=== PATIENT | male | born 1960 | race Caucasian/White ===

== ENCOUNTER 2019-06-28 17:01 | Inpatient (IN) | payer OTHER ==
[~2019-06-28] VITALS: Ht 185.4 cm; Wt 91.3 kg
[~2019-06-28 17:01] MED LIST: ELAVIL
[2019-06-28] MEDS ORDERED: SODIUM CHLORIDE 0.9% 1,000 ML IV ONE (17:30)
[2019-06-28] MEDS ORDERED: cefTRIAXone 1GM/50ML D5W 50 ML IV ONE (18:00)
[2019-06-28 19:22] LABS: Basophils # (auto) 0.1 uL; Eosinophils # (auto) 0.2 uL; Nucleated Red Blood Cells % 0.1 %
[2019-06-28 19:23] LABS: Basophils % (auto) 0.7 % (0.0-2.0); Eosinophils % (auto) 1.5 % (0.0-7.0); Hematocrit 31.5 % (41.0-53.0); Hemoglobin 10.6 g/dL (13.5-17.5); Lymphocytes # (auto) 2.4 uL; Mean Corpuscular Hemoglobin 30.1 pg (28.0-32.0); Mean Corpuscular Hgb Conc. 33.6 g/dL (32.0-36.0); Mean Corpuscular Volume 89.5 fL (80.0-100.0); Monocytes # (auto) 1.4 uL; Monocytes % (auto) 9.3 % (0.0-12.0); Neutrophils # (auto) 10.9 uL; Neutrophils % (auto) 72.5 % (37.0-80.0); Red Blood Cells 3.52 10^6/uL (4.5-5.90); Red Cell Distribution Width 14.3 % (11.8-14.3); White Blood Cell 15.1 10^3/uL (4.4-10.8)
[2019-06-28 19:29] LABS: Albumin 2.8 g/dL (3.4-5.0); Calcium 8.7 mg/dL (8.5-10.1)
[2019-06-28] MEDS ORDERED: LACTULOSE 20Gm/30ML SOLN PO PRN (19:30)
[2019-06-28] MEDS ORDERED: ACETAMINOPHEN 500 MG TAB PO PRN (19:30)
[2019-06-28] MEDS ORDERED: traMADol HCL 50 MG TAB PO PRN (19:30)
[2019-06-28] MEDS ORDERED: PROMETHAZINE HCL 25 MG/ML 1ML IV PRN (19:30)
[2019-06-28] MEDS ORDERED: TEMAZEPAM 15 MG CAP PO PRN (19:30)
[2019-06-28] MEDS ORDERED: ALBUTEROL SULF 2.5 MG/0.5ML(0.5%) NEB SOLN NEB PRN (19:30)
[2019-06-28 19:31] LABS: BUN/Creatinine Ratio 13.6
[2019-06-28 19:33] LABS: Bilirubin, Total 0.3 mg/dL (0.2-1.0); Total Protein 7.5 g/dL (6.4-8.2)
[2019-06-28] MEDS ORDERED: FLUTICASONE PROP NASAL SPR 0.05 % (50MCG) 16GM EACHNOSTRI ONE (20:00)
[2019-06-28] MEDS ORDERED: IOHEXOL 350 MG/ML 100ML IJ ONE ×2 (20:08→21:09)
[2019-06-28] MEDS: SODIUM CHLORIDE 0.9% 1,000 ML IV SCH (20:08)
[2019-06-28 21:19] LABS: Platelet Count (auto) 791 10^3/uL (140-450)
[2019-06-28] MEDS: CLINDAMYCIN 600MG IV 50 ML IV SCH (22:07)
[2019-06-28 22:18] VITALS: BP 129/71
[2019-06-28 22:41] VITALS: BP 123/77
--- NOTE | 2019-06-28 22:45 | NUR ---
PATIENT ARRIVED FROM ER AT 2218 VIA WHEELCHAIR PATIENT IN BED, BED IS LOCKED IN LOWEST POSITION, BED RAILS UP X2 AND HEAD OF BED IS UP >30 DEGREES. BEDSIDE TABLE WITHIN REACH, CALL LIGHT WITHIN REACH. ORIENTED PATIENT TO ROOM AND RESTROOM. CALL LIGHT PROVIDED FOR PATIENT; PATIENT RETURNED DEMONSTRATION ON PROPER USE OF CALL LIGHT CONTROL AND BED. AND DAUGHTER AT BEDSIDE, [employer] NOTED. KAREN TAYLOR ASSISTED WITH PATIENT HEALTH HISTORY. DISCUSSED POC WITH PATIENT AND INSTRUCTED PATIENT TO CALL PRN; PATIENT VERBALIZED UNDERSTANDING. WILL CONTINUE OT MONITOR Q1H AND PRN.
--- NOTE | 2019-06-28 23:05 | NUR ---
MED RECONCILIATION PER KAREN WRIGHTZ- CLAUDIA [phone], SHE WILL BRING IN LIST OF CURRENT MEDICATION IN THE AM 06/29/19.
[2019-06-29] VITALS (7 sets, daily range): BP systolic 104–119; BP diastolic 48–73
[2019-06-29] MEDS: IPRATROPIUM BROM 0.5 MG/2.5ML INH SOL NEB SCH ×5 (01:01→23:15)
[2019-06-29] MEDS: ALBUTEROL SULF 2.5 MG/0.5ML(0.5%) NEB SOLN NEB SCH ×5 (01:02→23:14)
[2019-06-29] MEDS: CLINDAMYCIN 600MG IV 50 ML IV SCH ×3 (05:29→22:06)
--- NOTE | 2019-06-29 06:52 | NUR ---
CLOSING NOTE PATIENT IS RESTING IN BED EYES CLOSED. BREATHING IS EVEN AND UNLABORED. NO S/SX OF DISTRESS, SOB OR PAIN. RESPIRATORY CULTURE ORDER FOR LAB IS PENDING; WILL ENDORSE PATIENT CARE TO DAY SHIFT NURSE.
[2019-06-29 07:29] LABS: Eosinophils # (auto) 0.1 uL; Monocytes # (auto) 1.6 uL
[2019-06-29 07:31] LABS: Basophils # (auto) 0 uL; Basophils % (auto) 0.2 % (0.0-2.0); Eosinophils % (auto) 0.8 % (0.0-7.0); Hematocrit 28.9 % (41.0-53.0); Hemoglobin 10.2 g/dL (13.5-17.5); Lymphocytes % (auto) 11.4 % (10.0-50.0); Mean Corpuscular Hemoglobin 31.2 pg (28.0-32.0); Mean Corpuscular Hgb Conc. 35.2 g/dL (32.0-36.0); Mean Corpuscular Volume 88.5 fL (80.0-100.0); Monocytes % (auto) 9.1 % (0.0-12.0); Neutrophils # (auto) 13.8 uL; Neutrophils % (auto) 78.5 % (37.0-80.0); Red Blood Cells 3.27 10^6/uL (4.5-5.90); Red Cell Distribution Width 14.5 % (11.8-14.3); White Blood Cell 17.6 10^3/uL (4.4-10.8)
[2019-06-29 07:41] LABS: Platelet Count (auto) 770 10^3/uL (140-450)
[2019-06-29 07:42] LABS: Albumin 2.3 g/dL (3.4-5.0); Calcium 8.3 mg/dL (8.5-10.1)
[2019-06-29 07:45] LABS: BUN/Creatinine Ratio 10.5; Bilirubin, Total 0.5 mg/dL (0.2-1.0); Total Protein 6.8 g/dL (6.4-8.2)
--- NOTE | 2019-06-29 08:00 | NUR ---
Opening Shift Note Patient orientated to RN, Joi and room. Assumed care of patient, awake and alert. No S/S of distress/SOB or pain. Instructed on POC and to call for assist PRN, will continue to monitor for changes. Bed is in low position and call light within reach.
[2019-06-29] MEDS: SODIUM CHLORIDE 0.9% 1,000 ML IV SCH ×2 (08:47→22:07)
[2019-06-29] MEDS: FLUTICASONE PROP NASAL SPR 0.05 % (50MCG) 16GM EACHNOSTRI SCH (10:00)
[2019-06-29] MEDS: ENOXAPARIN SOD 40 MG/0.4 ML SYRINGE SC SCH (10:08)
[2019-06-29] MEDS: PANTOPRAZOLE 40 MG TAB PO SCH (10:09)
[2019-06-29] MEDS: LEVOFLOXACIN 500MG 100 ML IV SCH (10:10)
--- NOTE | 2019-06-29 11:35 | NUR ---
AT BEDSIDE DR Elin LEIVA AT BEDSIDE AT THIS TIME. NEW ORDERS RECEIVED. CONTINUING TO MONITOR.
--- NOTE | 2019-06-29 19:36 | NUR ---
END OF SHIFT NOTE PATIENT RESTING COMFORTABLY IN BED. PATIENT SHOWS NO S/S OF DISTRESS OR SOB NOTED. BED IN LOWEST LOCKED POSITION, CALL LIGHT WITHIN REACH. CARE ENDORSED TO NOC RN.
[2019-06-29] MEDS ORDERED: FENO1TAB42 PO (19:40)
[2019-06-29] MEDS: FENOFIBRATE 145MG TAB PO SCH (22:00)
[2019-06-29] MEDS: AMITRIPTYLINE HCL 25 MG TAB PO SCH (22:06)
[2019-06-30] MEDS: CLINDAMYCIN 600MG IV 50 ML IV SCH ×3 (05:32→22:21)
[2019-06-30 05:46] VITALS: BP 109/65
[2019-06-30 06:10] LABS: Hemoglobin 9.6 g/dL (13.5-17.5)
[2019-06-30 06:13] LABS: Basophils # (auto) 0.1 uL; Basophils % (auto) 0.4 % (0.0-2.0); Eosinophils # (auto) 0.2 uL; Eosinophils % (auto) 1.3 % (0.0-7.0); Hematocrit 28.4 % (41.0-53.0); Lymphocytes # (auto) 1.8 uL; Lymphocytes % (auto) 14.2 % (10.0-50.0); Mean Corpuscular Hemoglobin 30.2 pg (28.0-32.0); Mean Corpuscular Hgb Conc. 33.7 g/dL (32.0-36.0); Mean Corpuscular Volume 89.6 fL (80.0-100.0); Monocytes # (auto) 1.1 uL; Monocytes % (auto) 8.7 % (0.0-12.0); Neutrophils # (auto) 9.5 uL; Neutrophils % (auto) 75.4 % (37.0-80.0); Red Blood Cells 3.17 10^6/uL (4.5-5.90); Red Cell Distribution Width 14.4 % (11.8-14.3); White Blood Cell 12.7 10^3/uL (4.4-10.8)
[2019-06-30 06:18] LABS: Potassium 3.7 mmol/L (3.5-5.1)
[2019-06-30] MEDS: ALBUTEROL SULF 2.5 MG/0.5ML(0.5%) NEB SOLN NEB SCH ×3 (06:23→18:47)
[2019-06-30] MEDS: IPRATROPIUM BROM 0.5 MG/2.5ML INH SOL NEB SCH ×3 (06:23→18:46)
[2019-06-30 06:25] LABS: Albumin 2.2 g/dL (3.4-5.0); BUN/Creatinine Ratio 11.5; Bilirubin, Total 0.5 mg/dL (0.2-1.0); Calcium 8.3 mg/dL (8.5-10.1); Total Protein 6.6 g/dL (6.4-8.2)
--- NOTE | 2019-06-30 07:35 | NUR ---
OPENING SHIFT NOTE ASSUMED CARE OF PATIENT. PATIENT AWAKE AND ALERT SITTING UP IN BED. NO S/S OF DISTRESS OR SOB NOTED. BED IN LOWEST LOCKED POSITION, CALL LIGHT WITHIN REACH. REVIEWED POC WITH PATIENT AND INSTRUCTED TO CALL FOR ASSIST NEEDED. WILL CONTINUE TO MONITOR.
[2019-06-30 07:51] LABS: Platelet Count (auto) 721 10^3/uL (140-450)
[2019-06-30 08:43] VITALS: BP 102/59
--- NOTE | 2019-06-30 09:40 | NUR ---
AT BEDSIDE DR Yesi LEIVA AT BEDSIDE AT THIS TIME.
[2019-06-30] MEDS: FLUTICASONE PROP NASAL SPR 0.05 % (50MCG) 16GM EACHNOSTRI SCH (10:00)
[2019-06-30] MEDS: PANTOPRAZOLE 40 MG TAB PO SCH (10:35)
[2019-06-30] MEDS: ENOXAPARIN SOD 40 MG/0.4 ML SYRINGE SC SCH (10:35)
[2019-06-30] MEDS: LEVOFLOXACIN 500MG 100 ML IV SCH (10:35)
[2019-06-30] MEDS: SODIUM CHLORIDE 0.9% 1,000 ML IV SCH (10:36)
[2019-06-30 11:54] VITALS: BP 101/57
[2019-06-30 17:00] VITALS: BP 121/75
--- NOTE | 2019-06-30 18:52 | NUR ---
END OF SHIFT NOTE PATIENT AWAKE AND ALERT SITTING UP IN BED. SPOUSE AT BEDSIDE AT THIS TIME. NO S/S OF DISTRESS OR SOB NOTED. BED IN LOWEST LOCKED POSITION, CALL LIGHT WITHIN REACH. WILL ENDORSE CARE TO NOC RN.
[2019-06-30 20:00] VITALS: BP 130/71
[2019-06-30] MEDS: AMITRIPTYLINE HCL 25 MG TAB PO SCH (22:21)
[2019-06-30] MEDS: FENOFIBRATE 145MG TAB PO SCH (22:21)
[2019-06-30 23:44] VITALS: BP 130/71
--- NOTE | 2019-07-01 | NUR ---
Respiratory note: PT REFUSED MED NEB TX AT THIS TIME. STATED HE WANTED TO HOLD OFF UNTIL THE MORNING SO THAT HE CAN CATCH UP ON SLEEP. NO SIGNS OF ANY RESPIRATORY DISTRESS NOTED. ADVISED PT TO CALL IF HE CHANGES HIS MIND.
[2019-07-01] MEDS: SODIUM CHLORIDE 0.9% 1,000 ML IV SCH ×2 (04:10→14:20)
[2019-07-01 05:12] VITALS: BP 64/75
[2019-07-01] MEDS: ALBUTEROL SULF 2.5 MG/0.5ML(0.5%) NEB SOLN NEB SCH ×4 (05:43→19:15)
[2019-07-01] MEDS: IPRATROPIUM BROM 0.5 MG/2.5ML INH SOL NEB SCH ×4 (05:43→19:15)
[2019-07-01] MEDS: CLINDAMYCIN 600MG IV 50 ML IV SCH ×3 (06:12→22:02)
[2019-07-01 06:35] LABS: Basophils # (auto) 0 uL; Basophils % (auto) 0.5 % (0.0-2.0); Eosinophils # (auto) 0.3 uL; Eosinophils % (auto) 2.8 % (0.0-7.0); Hematocrit 29.6 % (41.0-53.0); Lymphocytes # (auto) 1.8 uL; Lymphocytes % (auto) 17.7 % (10.0-50.0); Mean Corpuscular Hgb Conc. 33.7 g/dL (32.0-36.0); Mean Corpuscular Volume 88.9 fL (80.0-100.0); Monocytes # (auto) 0.7 uL; Neutrophils # (auto) 7.4 uL; Platelet Count (auto) 717 10^3/uL (140-450); Red Blood Cells 3.33 10^6/uL (4.5-5.90); Red Cell Distribution Width 14.6 % (11.8-14.3); White Blood Cell 10.3 10^3/uL (4.4-10.8)
[2019-07-01 06:58] LABS: Albumin 2.3 g/dL (3.4-5.0); Calcium 8.6 mg/dL (8.5-10.1); Potassium 4.2 mmol/L (3.5-5.1)
[2019-07-01 07:01] LABS: BUN/Creatinine Ratio 10.2; Bilirubin, Total 0.4 mg/dL (0.2-1.0); Total Protein 6.8 g/dL (6.4-8.2)
--- NOTE | 2019-07-01 08:00 | NUR ---
Received pt resting in bed, call light within reach, pt denies any pain at this time, will continue to monitor pt.
[2019-07-01 08:23] VITALS: BP 93/59
[2019-07-01] MEDS: PANTOPRAZOLE 40 MG TAB PO SCH (09:57)
[2019-07-01] MEDS: LEVOFLOXACIN 500MG 100 ML IV SCH (09:57)
[2019-07-01] MEDS: FLUTICASONE PROP NASAL SPR 0.05 % (50MCG) 16GM EACHNOSTRI SCH (09:57)
[2019-07-01] MEDS: ENOXAPARIN SOD 40 MG/0.4 ML SYRINGE SC SCH (09:58)
--- NOTE | 2019-07-01 11:35 | NUR ---
Dr. Hernandez at bed side to see pt, doctor discussed the plan of care with pt.
[2019-07-01 12:34] VITALS: BP 115/66
[2019-07-01 16:30] VITALS: BP 112/66
--- NOTE | 2019-07-01 19:35 | NUR ---
Opening Shift Note Assumed care of patient, awake and alert. at bedside. No S/S of distress/SOB or pain. Bed in lowest locked position, side rails up x2, call light within reach. Instructed on POC and to call for assist PRN, will continue to monitor for changes Q1hr and PRN.
[2019-07-01 20:20] VITALS: BP 112/66
[2019-07-01 22:00] VITALS: BP 112/70
[2019-07-01] MEDS: AMITRIPTYLINE HCL 25 MG TAB PO SCH (22:02)
[2019-07-01] MEDS: FENOFIBRATE 145MG TAB PO SCH (22:03)
[2019-07-02] MEDS: ALBUTEROL SULF 2.5 MG/0.5ML(0.5%) NEB SOLN NEB SCH ×3 (00:17→11:43)
[2019-07-02] MEDS: IPRATROPIUM BROM 0.5 MG/2.5ML INH SOL NEB SCH ×3 (00:17→11:43)
[2019-07-02] MEDS: SODIUM CHLORIDE 0.9% 1,000 ML IV SCH (03:42)
[2019-07-02 05:00] VITALS: BP 101/60
[2019-07-02] MEDS: CLINDAMYCIN 600MG IV 50 ML IV SCH ×2 (05:42→13:45)
[2019-07-02 06:18] LABS: Basophils # (auto) 0.1 uL; Basophils % (auto) 0.7 % (0.0-2.0); Eosinophils # (auto) 0.3 uL; Hemoglobin 10.6 g/dL (13.5-17.5)
[2019-07-02 06:22] LABS: Eosinophils % (auto) 2.4 % (0.0-7.0); Hematocrit 32.3 % (41.0-53.0); Lymphocytes # (auto) 1.9 uL; Lymphocytes % (auto) 13.9 % (10.0-50.0); Mean Corpuscular Hgb Conc. 32.9 g/dL (32.0-36.0); Mean Corpuscular Volume 88.3 fL (80.0-100.0); Monocytes # (auto) 0.9 uL; Monocytes % (auto) 6.4 % (0.0-12.0); Neutrophils # (auto) 10.4 uL; Neutrophils % (auto) 76.6 % (37.0-80.0); Red Blood Cells 3.66 10^6/uL (4.5-5.90); Red Cell Distribution Width 14.5 % (11.8-14.3); White Blood Cell 13.6 10^3/uL (4.4-10.8)
[2019-07-02 06:48] LABS: % Iron Saturation 11.9 % (20-55)
[2019-07-02 06:49] LABS: Albumin 2.5 g/dL (3.4-5.0); Calcium 8.7 mg/dL (8.5-10.1); Potassium 3.9 mmol/L (3.5-5.1)
[2019-07-02 06:52] LABS: BUN/Creatinine Ratio 11.9; Bilirubin, Total 0.5 mg/dL (0.2-1.0); Total Protein 6.9 g/dL (6.4-8.2)
--- NOTE | 2019-07-02 07:15 | NUR ---
Closing Note and Critical Platelet Critical lab value for patient's platelets, 819. Will page hotel operations manager hospitalist and make dayshift RN aware. Patient lying in bed, awake and alert. No s/s of distress. Care endorsed to dayshift RN.
--- NOTE | 2019-07-02 07:20 | NUR ---
Opening Shift Note Assumed care of patient, awake and alert. No S/S of distress/SOB or pain. Instructed on POC and to call for assist PRN, will continue to monitor for changes Q1hr and PRN. Bed locked in lowest position with two side rails up and call light in reach.
--- NOTE | 2019-07-02 07:56 | NUR ---
CRITICAL LAB [facility] DENTAL MECHANIC NURSE CALLED OUT CRITICAL LAB PLT [id number], RECEIVED CALL BACK FROM ESPERANZA GIPSON NP CRITICAL LAB REPORTED NO ORDERS RECEIVED.
[2019-07-02 08:00] VITALS: BP 104/57
[2019-07-02 08:08] LABS: Platelet Count (auto) 819 10^3/uL (140-450)
[2019-07-02 08:45] VITALS: BP 104/57
[2019-07-02] MEDS: FLUTICASONE PROP NASAL SPR 0.05 % (50MCG) 16GM EACHNOSTRI SCH (09:58)
[2019-07-02] MEDS: PANTOPRAZOLE 40 MG TAB PO SCH (09:58)
[2019-07-02] MEDS: ENOXAPARIN SOD 40 MG/0.4 ML SYRINGE SC SCH (09:59)
[2019-07-02] MEDS: LEVOFLOXACIN 500MG 100 ML IV SCH (09:59)
[2019-07-02 10:33] LABS: Folate (Folic Acid) 17.83 ng/mL (5.38-24)
[2019-07-02 10:40] LABS: Hepatitis B Surface Antibody Positive
[2019-07-02 11:19] LABS: Hepatitis A Total Antibody Positive
--- NOTE | 2019-07-02 12:40 | NUR ---
DR CALI MENDOZA.
[2019-07-02 13:04] VITALS: BP 112/62
[2019-07-02 15:20] VITALS: BP 112/62
--- NOTE | 2019-07-02 16:34 | NUR ---
Discharge instructions given as ordered. Encourage to follow up with PMD as instructed. All questions and concerns addressed. Patient verbalized understanding. Medication reconciliation form completed and copy given to patient. Home medications held in Pharmacy returned to patient, and no needed vaccines given. IV removed with catheter intact, pressure dressing applied. Patient ambulated to vehicle with all personal belongings, accompanied by . No distress noted at time of departure.Prescriptions in hand.
[2019-07-02 17:16] LABS: Hepatitis B Core Total AB Negative; Hepatitis B Surface Antigen Negative (Negative)
[2019-07-02 17:17] LABS: Hepatitis C Antibody Negative (Negative)
== END 2019-07-02 16:45 | disposition home or self-care (01) | DRG 871 ==
LOC: ER 17:09 → OVERFLOW 17:10 → WEST WING 22:22
PROVIDERS: ADMIT Internal Medicine; ATTEND Family Medicine
DX: A41.9 Sepsis, unspecified organism (principal); J18.1 Lobar pneumonia, unspecified organism; J91.8 Pleural effusion in other conditions classified elsewhere; E78.5 Hyperlipidemia, unspecified; G43.909 Migraine, unspecified, not intractable, without status migrainosus; B37.9 Candidiasis, unspecified; E78.00 Pure hypercholesterolemia, unspecified; E78.1 Pure hyperglyceridemia; F32.9 Major depressive disorder, single episode, unspecified; K76.0 Fatty (change of) liver, not elsewhere classified; D47.3 Essential (hemorrhagic) thrombocythemia; Z82.49 Family history of ischemic heart disease and other diseases of the circulatory system; Z87.442 Personal history of urinary calculi; Z83.3 Family history of diabetes mellitus; Z87.891 Personal history of nicotine dependence; Z79.899 Other long term (current) drug therapy
CPT/HCPCS: 36415; 71046; 71275; 76705; 78226; 80053; 82607; 82728; 82746; 83540; 83550; 83605; 85025; 86635; 86704; 86706; 86708; 86803; 87040; 87278; 87340; 93005; 94640; 94761; 96361; 96365; G0378; J0696; J1956; J3490

== ENCOUNTER → 2019-08-06 | Outpatient (CLI) | payer OTHER ==
[~2019-08-06] MED LIST changes: +FENO1TAB42 PO
[2019-08-06 15:16] LABS: Eosinophils # (auto) 0.3 uL; Eosinophils % (auto) 3.6 % (0.0-7.0); Lymphocytes # (auto) 2.9 uL; Monocytes # (auto) 0.5 uL; Neutrophils # (auto) 3.6 uL; Nucleated Red Blood Cells % 0.1 %
[2019-08-06 15:17] LABS: Basophils # (auto) 0 uL; Basophils % (auto) 0.7 % (0.0-2.0); Hematocrit 40.7 % (41.0-53.0); Hemoglobin 13.5 g/dL (13.5-17.5); Lymphocytes % (auto) 39.8 % (10.0-50.0); Mean Corpuscular Hemoglobin 29.7 pg (28.0-32.0); Mean Corpuscular Hgb Conc. 33.2 g/dL (32.0-36.0); Mean Corpuscular Volume 89.4 fL (80.0-100.0); Monocytes % (auto) 7.1 % (0.0-12.0); Neutrophils % (auto) 48.8 % (37.0-80.0); Platelet Count (auto) 478 10^3/uL (140-450); Red Blood Cells 4.55 10^6/uL (4.5-5.90); Red Cell Distribution Width 16.1 % (11.8-14.3); White Blood Cell 7.3 10^3/uL (4.4-10.8)
[2019-08-06 15:55] LABS: Albumin 4.2 g/dL (3.4-5.0); Calcium 9.3 mg/dL (8.5-10.1); Potassium 3.8 mmol/L (3.5-5.1)
[2019-08-06 15:58] LABS: BUN/Creatinine Ratio 18.2; Bilirubin, Total 0.5 mg/dL (0.2-1.0); Total Protein 7.8 g/dL (6.4-8.2)
== END | disposition home or self-care (01) ==
LOC: LAB 15:01
PROVIDERS: ATTEND Internal Medicine
DX: D47.3 Essential (hemorrhagic) thrombocythemia (principal)
CPT/HCPCS: 36415; 80053; 82668; 83615; 85025

== ENCOUNTER → 2022-05-25 | Outpatient (CLI) | payer OTHER ==
[~2022-05-25] MED LIST changes: +FENO145T27 PO; -FENO1TAB42 PO
[2022-05-25 07:42] LABS: Basophils # (auto) 0 10 ^3/uL (0-0.2); Basophils % (auto) 0.4 % (0.0-2.0); Eosinophils # (auto) 0.2 10 ^3/uL (0-0.8); Eosinophils % (auto) 2.1 % (0.0-7.0); Hemoglobin 15.2 g/dL (13.5-17.5); Lymphocytes # (auto) 2.7 10 ^3/uL (0.4-5.4); Lymphocytes % (auto) 37.4 % (10.0-50.0); Mean Corpuscular Hemoglobin 30.6 pg (28.0-32.0); Mean Corpuscular Volume 92.8 fL (80.0-100.0); Monocytes # (auto) 0.6 10 ^3/uL (0-1.3); Monocytes % (auto) 8.9 % (0.0-12.0); Neutrophils # (auto) 3.6 10 ^3/uL (1.6-8.6); Neutrophils % (auto) 51.2 % (37.0-80.0); Red Blood Cells 4.95 10^6/uL (4.5-5.90); Red Cell Distribution Width 13.9 % (11.8-14.3); White Blood Cell 7.1 10^3/uL (4.4-10.8)
[2022-05-25 07:59] LABS: Albumin 3.9 g/dL (3.4-5.0); Calcium 8.7 mg/dL (8.5-10.1); Potassium 3.8 mmol/L (3.5-5.1)
[2022-05-25 08:05] LABS: BUN/Creatinine Ratio 19.8; Bilirubin, Total 0.6 mg/dL (0.2-1.0); Total Protein 7.3 g/dL (6.4-8.2)
== END | disposition home or self-care (01) ==
LOC: LAB 07:21
PROVIDERS: ATTEND Specialist
DX: R91.1 Solitary pulmonary nodule (principal); D18.00 Hemangioma unspecified site
CPT/HCPCS: 36415; 80053; 85025

== ENCOUNTER 2022-08-28 11:18 | Emergency (ER) | payer OTHER ==
[~2022-08-28] VITALS: Ht 185.4 cm; Wt 96.0 kg
[2022-08-28 11:36] VITALS: BP 152/100
[2022-08-28] MEDS ORDERED: methylPREDNISolone SOD SUCC 125 MG/2 ML VL IM ONE (11:45)
[2022-08-28] MEDS ORDERED: EPINEPHrine HCL 1 MG/1 ML AMP SC ONE (11:45)
[2022-08-28] MEDS ORDERED: PRED20TA2 PO (12:08)
[2022-08-28] MEDS ORDERED: CLOB0.05 TOP (12:08)
== END 2022-08-28 12:31 | disposition home or self-care (01) ==
LOC: ER 11:25
DX: R21 Rash and other nonspecific skin eruption (principal); T50.995A Adverse effect of other drugs, medicaments and biological substances, initial encounter; E78.5 Hyperlipidemia, unspecified; Z79.899 Other long term (current) drug therapy; Z87.891 Personal history of nicotine dependence; Y92.89 Other specified places as the place of occurrence of the external cause
CPT/HCPCS: 96372; 99284; J0171; J2930

== ENCOUNTER 2023-04-29 16:49 | Emergency (ER) | payer OTHER ==
[~2023-04-29] VITALS: Ht 185.4 cm; Wt 90.9 kg
[~2023-04-29 16:49] MED LIST changes: +CLOB0.05 TOP; +PRED20TA2 PO
[2023-04-29 18:01] LABS: Basophils # (auto) 0 10 ^3/uL (0-0.2); Basophils % (auto) 0.4 % (0.0-2.0); Eosinophils # (auto) 0 10 ^3/uL (0-0.8); Eosinophils % (auto) 0.3 % (0.0-7.0); Hematocrit 43.8 % (41.0-53.0); Hemoglobin 15.2 g/dL (13.5-17.5); Lymphocytes # (auto) 1.2 10 ^3/uL (0.4-5.4); Lymphocytes % (auto) 13.9 % (10.0-50.0); Mean Corpuscular Hemoglobin 31.8 pg (28.0-32.0); Mean Corpuscular Hgb Conc. 34.7 g/dL (32.0-36.0); Mean Corpuscular Volume 91.7 fL (80.0-100.0); Monocytes # (auto) 0.6 10 ^3/uL (0-1.3); Monocytes % (auto) 7.1 % (0.0-12.0); Neutrophils # (auto) 6.5 10 ^3/uL (1.6-8.6); Neutrophils % (auto) 78.3 % (37.0-80.0); Nucleated Red Blood Cells % 0.1 %; Red Blood Cells 4.78 10^6/uL (4.5-5.90); Red Cell Distribution Width 13.8 % (11.8-14.3); White Blood Cell 8.4 10^3/uL (4.4-10.8)
[2023-04-29 18:03] LABS: Urine Bacteria NONE SEEN /hpf (None Seen); Urine Blood Negative /uL (Negative); Urine Specific Gravity 1.008 (1.001-1.035); Urine WBC 1 /hpf (0 - 3)
[2023-04-29 18:28] LABS: Albumin 3.9 g/dL (3.4-5.0); BUN/Creatinine Ratio 14.9 (10.0-20.0); Bilirubin, Total 0.7 mg/dL (0.2-1.0); Calcium 9.8 mg/dL (8.5-10.1); Potassium 3.5 mmol/L (3.5-5.1); Total Protein 7.1 g/dL (6.4-8.2)
[2023-04-29 22:39] LABS: Calcium 9.3 mg/dL (8.5-10.1); Potassium 3.5 mmol/L (3.5-5.1)
[2023-04-29 22:41] LABS: Alcohol, Urine < 3.0 mg/dL (0-10); Amphetamine Screen, Urine NEGATIVE (NEGATIVE); Barbiturate Scree,Urine NEGATIVE (NEGATIVE); Benzodiazephine Screen, Urine NEGATIVE (NEGATIVE); Cannabinoid Screen, Urine NEGATIVE (NEGATIVE); Cocaine Screen, Urine NEGATIVE (NEGATIVE); Opiate Scree,Urine NEGATIVE (NEGATIVE); Phencyclidine Screen, Urine NEGATIVE (NEGATIVE)
[2023-04-29 22:42] LABS: BUN/Creatinine Ratio 14.3 (10.0-20.0); Bilirubin, Total 0.8 mg/dL (0.2-1.0); Total Protein 7.4 g/dL (6.4-8.2)
[2023-04-29] MEDS ORDERED: AMLO1TAB23 PO (23:01)
[2023-04-29 23:24] VITALS: BP 162/101
== END 2023-04-29 23:25 | disposition home or self-care (01) ==
LOC: ER 16:49 → EDBD 16:49 → ER 23:25
DX: F41.9 Anxiety disorder, unspecified (principal); I10 Essential (primary) hypertension; E78.5 Hyperlipidemia, unspecified; Z79.899 Other long term (current) drug therapy; Z87.442 Personal history of urinary calculi; Z87.891 Personal history of nicotine dependence
CPT/HCPCS: 36415; 71045; 80053; 80307; 81001; 83880; 84484; 85025; 85379; 93005

== ENCOUNTER → 2024-04-25 | Outpatient (CLI) | payer OTHER ==
[~2024-04-25] MED LIST changes: +AMLO1TAB23 PO
[2024-04-25 10:06] LABS: Basophils # (auto) 0 10 ^3/uL (0-0.2); Basophils % (auto) 0.6 % (0.0-2.0); Eosinophils # (auto) 0.1 10 ^3/uL (0-0.8); Eosinophils % (auto) 1.8 % (0.0-7.0); Hematocrit 51.3 % (41.0-53.0); Hemoglobin 17.7 g/dL (13.5-17.5); Lymphocytes # (auto) 2.2 10 ^3/uL (0.4-5.4); Lymphocytes % (auto) 33.4 % (10.0-50.0); Mean Corpuscular Hemoglobin 32.7 pg (28.0-32.0); Mean Corpuscular Hgb Conc. 34.5 g/dL (32.0-36.0); Mean Corpuscular Volume 94.7 fL (80.0-100.0); Monocytes # (auto) 0.6 10 ^3/uL (0-1.3); Monocytes % (auto) 9.6 % (0.0-12.0); Neutrophils # (auto) 3.5 10 ^3/uL (1.6-8.6); Neutrophils % (auto) 54.6 % (37.0-80.0); Nucleated Red Blood Cells % 0.3 %; Red Blood Cells 5.42 10^6/uL (4.5-5.90); Red Cell Distribution Width 13.8 % (11.8-14.3); White Blood Cell 6.4 10^3/uL (4.4-10.8)
[2024-04-25 10:35] LABS: Alanine Aminotransferase 39 U/L (7-40); Albumin 4.1 g/dL (3.2-4.8); Alkaline Phosphatase 108 U/L (46-116); Anion Gap 8 (5-15); Aspartate Aminotransferase 62 U/L (13-40); BUN/Creatinine Ratio 12.4 (10.0-20.0); Bilirubin, Total 0.9 mg/dL (0.2-1.0); Blood Urea Nitrogen 12 mg/dL (9-23); Calcium 9.6 mg/dL (8.5-10.1); Carbon Dioxide 30 mmol/L (20-30); Chloride 102 mmol/L (98-107); Cholesterol 206 mg/dL (< 200); Glucose 112 mg/dL (74-106); HDL Cholesterol 65 mg/dL (40-59); LDL Cholesterol 121 mg/dL (< 100); Potassium 4.1 mmol/L (3.5-5.1); Sodium 140 mmol/L (136-145); Triglycerides 163 mg/dL (< 150)
[2024-04-25 10:36] LABS: Total Protein 7.7 g/dL (5.7-8.2)
[2024-04-25 11:20] LABS: Free T4 (Free Thyroxine) 1.25 ng/dL (0.89-1.76)
== END | disposition home or self-care (01) ==
LOC: LAB 09:49
PROVIDERS: ATTEND Nurse Practitioner Family
DX: I10 Essential (primary) hypertension (principal); F41.9 Anxiety disorder, unspecified; Z78.9 Other specified health status; Z79.899 Other long term (current) drug therapy
CPT/HCPCS: 36415; 80053; 80061; 82306; 82607; 84439; 84443; 85025

== ENCOUNTER 2025-05-10 10:11 | Outpatient (CLI) | payer OTHER ==
[2025-05-10 11:17] LABS: Chloride 105 mmol/L (98-107); Potassium 4.4 mmol/L (3.5-5.1); Sodium 142 mmol/L (136-145)
[2025-05-10 11:18] LABS: Anion Gap 10 (5-15); Calcium 9.7 mg/dL (8.7-10.4); Carbon Dioxide 27 mmol/L (20-31)
[2025-05-10 11:23] LABS: BUN/Creatinine Ratio 8.1 (10.0-20.0); Glucose 99 mg/dL (74-106)
[2025-05-10 11:27] LABS: Blood Urea Nitrogen 8 mg/dL (9-23)
== END 2025-05-10 17:00 | disposition home or self-care (01) ==
LOC: LAB 10:11
PROVIDERS: ATTEND Nurse Practitioner Family
DX: E78.6 Lipoprotein deficiency (principal); R74.01 Elevation of levels of liver transaminase levels
CPT/HCPCS: 36415; 80048